=== PATIENT | female | born 1980 | race Caucasian/White ===

== ENCOUNTER 2019-08-31 17:51 | Emergency (ER) | payer BC ==
[~2019-08-31] VITALS: Ht 160 cm; Wt 65.8 kg
[~2019-08-31 17:51] MED LIST: IBUP800 PO; LEVFLO250 PO; ONDA4 PO
[2019-08-31] MEDS ORDERED: SYNTHROID100 MCG PO (18:35)
[2019-08-31] MEDS ORDERED: NALTREXONE HCL PO (18:36)
[2019-08-31] MEDS ORDERED: LORA2 PO (19:38)
[2019-08-31] MEDS ORDERED: Zoloft50 MG PO (19:38)
== END 2019-08-31 19:56 | disposition home or self-care (01) ==
LOC: ER 17:51
DX: F41.9 Anxiety disorder, unspecified (principal); F32.9 Major depressive disorder, single episode, unspecified; E03.9 Hypothyroidism, unspecified; Z79.899 Other long term (current) drug therapy
CPT/HCPCS: 99283

== ENCOUNTER 2025-08-10 16:46 | Emergency (ER) | payer BC ==
[~2025-08-10] VITALS: Ht 160 cm; Wt 61.2 kg
[~2025-08-10 16:46] MED LIST changes: -CEFP200 PO
[2025-08-10 17:01] VITALS: BP 136/89
[2025-08-10] MEDS ORDERED: Ketorolac Tromethamine 30mg Vial IV ONE (17:05)
[2025-08-10] MEDS ORDERED: NS 1,000 ML IV SCH (17:05)
[2025-08-10 18:26] LABS: Source, Urine Clean Catch
[2025-08-10 18:28] LABS: Color, Urine Amber (P-Yellow); Glucose Qualitative, Urine Neg (Neg); Ketones, Urine 4+ (Neg); Leukocyte Esterase, Urine 2+ (Neg); Protein, Urine 2+ (Neg); Specific Gravity, Urine 1.030 (1.003-1.022); Urobilinogen, Urine 2+ (Normal)
[2025-08-10 18:43] LABS: Bilirubin, Urine 1+ (Neg)
[2025-08-10] MEDS ORDERED: CefTRIAXone Sodium 1,000 MG in NS 100 ML IV ONE (18:55)
[2025-08-10] MEDS ORDERED: IBUP800 PO (19:07)
[2025-08-10] MEDS ORDERED: CEFP200 PO (19:07)
== END 2025-08-10 21:16 | disposition home or self-care (01) ==
LOC: ER 16:46
PROVIDERS: Emergency Medicine
DX: N39.0 Urinary tract infection, site not specified (principal); R31.9 Hematuria, unspecified; E03.9 Hypothyroidism, unspecified; Z79.890 Hormone replacement therapy; Z79.899 Other long term (current) drug therapy
CPT/HCPCS: 74176; 81001; J0696; J1885; J7030

== ENCOUNTER → 2025-08-10 | Outpatient (CLI) | payer BC ==
[~2025-08-10] MED LIST changes: +CEFP200 PO; +LORA2 PO; +NALTREXONE HCL PO; +SYNTHROID100 MCG PO; +Zoloft50 MG PO
[2025-08-10 16:23] LABS: BASOPHILS ABSOLUTE AUTO 0.02 K/mm3 (0.00-0.23); BASOPHILS PERCENT AUTO 0 % (0-2); EOSINOPHILS ABSOLUTE AUTO 0.02 K/mm3 (0.00-0.68); EOSINOPHILS PERCENT AUTO 0 % (0-6); Hematocrit 43.0 % (33.0-51.0); Hemoglobin 14.9 g/dL (11.5-16.0); IMMATURE GRAN ABSOLUTE AUTO 0.03 K/mm3 (0.00-0.10); IMMATURE GRAN PERCENT AUTO 0 % (0-1); LYMPHOCYTES ABSOLUTE AUTO 0.78 K/mm3 (0.84-5.20); LYMPHOCYTES PERCENT AUTO 6 % (21-46); MONOCYTES ABSOLUTE AUTO 0.62 K/mm3 (0.16-1.47); MONOCYTES PERCENT AUTO 5 % (4-13); Mean Corpuscular HGB Conc 34.7 g/dL (31.5-36.5); Mean Corpuscular Volume 92 fL (80-100); NEUTROPHILS ABSOLUTE AUTO 11.54 K/mm3 (1.96-9.15); NEUTROPHILS PERCENT AUTO 89 % (41-73); NRBC ABSOLUTE 0.00 K/mm3 (0.00-0.02); NRBC Auto 0.0 /100 WBC (0.0-0.2); Platelet Count 348 K/mm3 (150-400); RDW Coefficient Variation 12.5 % (11.7-14.2); RDW Standard Deviation 42.1 fL (35.1-46.3)
[2025-08-10 16:33] LABS: Alanine Aminotransfer (ALT/SGP 27.0 U/L (12-78); Albumin, Blood 4.5 g/dL (3.4-5.0); Albumin/Globulin Ratio 1.3 (0.8-1.8); Anion Gap 15.0 mmol/L (3-11); Aspartate Aminotrans (AST/SGOT 22.0 U/L (12-37); Bilirubin, Total 0.9 mg/dL (0.1-1.0); Blood Urea Nitrogen 15.0 mg/dL (8-24); CO2, Blood 26.0 mmol/L (21-32); Calcium, Blood 9.6 mg/dL (8.5-10.1); Chloride, Blood 103.0 mmol/L (98-108); Creatinine, Blood 0.86 mg/dL (0.40-1.00); Globulin, Blood 3.6 g/dL (2.2-4.0); Glucose, Blood 97.0 mg/dL (70-99); Potassium, Blood 3.9 mmol/L (3.5-5.5); Sodium, Blood 140.0 mmol/L (136-145); Total Protein, Blood 8.1 g/dL (6.4-8.2)
== END ==
LOC: LAB SHORT 16:19 → LAB 16:19
PROVIDERS: Physician Assistant
DX: R10.9 Unspecified abdominal pain (principal)
CPT/HCPCS: 80053; 85025